=== PATIENT | male | born 2000 | race Hispanic/Latino ===

== ENCOUNTER 2021-11-02 05:24 | Emergency (ER) | payer SELFPAY ==
[2021-11-02] MEDS ORDERED: Ibuprofen 800 MG TAB ONE (05:45)
[2021-11-02 12:35] LABS: SARS-CoV-2 PCR by NAA Not Detected (NotDetected)
== END 2021-11-02 06:07 | disposition home or self-care (01) ==
LOC: EDBD 05:24 → ERS 05:24
DX: B34.9 Viral infection, unspecified (principal); Z20.822 Contact with and (suspected) exposure to COVID-19
CPT/HCPCS: 99284; U0003; U0005